=== PATIENT | female | born 1975 | race Caucasian/White ===

== ENCOUNTER 2020-07-24 10:36 | Emergency (ER) | payer BC, SELFPAY ==
[2020-07-24 10:41] VITALS: BP 120/72; PULSE 78; RESP 16; TEMP 36.6; O2SAT 99
--- NOTE | 2020-07-24 10:42 | ED.URI ---
HPI - URI/Sore Throat General Chief Complaint: Upper Respiratory Infection Stated Complaint: sore throat/swollen glands/white/body aches Time Seen by Provider: 07/24/20 11:03 Source: patient and RN notes reviewed Mode of arrival: ambulatory Limitations: no limitations History of Present Illness HPI Narrative: 44-year-old female presents with return for 3-day history of sore throat, cough, sinus congestion, pressure, drainage, fatigue. Reports she is been taking Mucinex DM. She has not taken her temperature, reports feeling warm. Denies any known sick contacts. MD elicited complaint: sore throat Related Data Home Medications Medication Instructions Recorded Confirmed epinephrine 0.3 mg/0.3 mL 0.3 mg IM ONCE 09/21/19 injection, auto-injector lorazepam 0.5 mg tablet 0.5 mg PO BID PRN 09/21/19 omeprazole magnesium 20 mg 20 mg PO DAILY 09/21/19 tablet,delayed release Allergies Allergy/AdvReac Type Severity Reaction Status Date / Time erythromycin base Allergy Mild Hives Verified 07/18/20 15:13 gluten Allergy Mild Nausea and Verified 07/18/20 15:13 Vomiting hydrocodone Allergy Mild Unknown Verified 07/18/20 15:13 hydroxyzine Allergy Mild unkown Verified 07/18/20 15:13 latex Allergy Mild Rash Verified 07/18/20 15:13 acetaminophen Allergy Unknown Unknown Verified 07/18/20 15:13 HYDROCODONE BIT Allergy Unknown Unknown Uncoded 07/18/20 15:13 MACROLIDES Allergy Unknown unknown Uncoded 07/18/20 15:13 TRIBUTATEAN Allergy Unknown Unknown Uncoded 07/18/20 15:13 Review of Systems Review of Systems: Narrative: CONSTITUTIONAL: Denies malaise, chills, sweats, or fever. EYES: Denies visual changes, redness, or discharge. ENT: Reports rhinorrhea, congestion, sore throat. Denies sinus pain, otalgia CARDIOVASCULAR: Denies chest pain, palpitations, or edema. RESPIRATORY: Reports cough. Denies dyspnea. GASTROINTESTINAL: Denies abdominal pain, nausea, vomiting, diarrhea SKIN: Denies rash or itching. MUSCULOSKELETAL: Denies myalgia. NEUROLOGIC: Denies headache. All systems reviewed & are unremarkable except as noted in HPI and below PMFSH Family History Family History (System 12/22/19 @ 10:45 by Marley Jeffery) Father Family history of hypercholesterolemia Family history of Parkinson's disease Mother Family history of malignant neoplasm of breast in first degree relative Social History Social History (Updated 07/18/20 @ 15:15 by Karen Jarrell [facility]) Smoking status: Never smoker Second hand tobacco smoke exposure: No Alcohol intake: current Comments At time of signature, agree with nursing past medical, surgical, social and family history. There is no relevant family history pertinent to the presenting complaint Exam Narrative: Exam Narrative: GENERAL: Well-appearing, well-nourished, and in no acute distress. HEAD: Normocephalic EYES: PERRLA, conjunctivae clear ENT: Nares clear, turbinates edematous and erythematous, clear discharge. Mucous membranes moist. TM pearly thomason with dull light reflex bilaterally; no tragal tenderness. Oropharynx mild erythematous without lesions. Tonsils not enlarged and without exudate, no drooling, no hoarseness, no trismus, uvula midline. NECK: Supple. No lymphadenopathy CHEST: Clear to auscultation, breath sounds equal. No wheezing, rhonchi, rales, or stridor. No respiratory distress, speaks in full sentences. HEART: Regular rate and rhythm. No murmur heard. SKIN: Warm, dry, no rash. NEURO: Alert and oriented x3. PSYCH: Normal mood and affect Course Course Emergency Course: Patient is aware of diagnosis, understands and agrees to treatment plan. Anticipatory guidance given. Patient agrees to follow-up as directed and is aware of reasons to seek care at the emergency department. Portions of this record may have been created with voice recognition software Vital Signs Vital signs: Vital Signs Temperature 97.8 F 07/24/20 10:41 Pulse Rate 78 07/24/20 10:41 Respira
== END 2020-07-24 11:09 | disposition home or self-care (01) ==
PROVIDERS: Emergency Provider Nurse Practitioner; PCP Internal Medicine
DX: J06.9 Acute upper respiratory infection, unspecified (principal); Z20.828 Contact with and (suspected) exposure to other viral communicable diseases
CPT/HCPCS: 87081; 87880; 99213; G0463

== ENCOUNTER 2020-07-24 11:05 | Outpatient (NON) | payer BC, SELFPAY ==
[2020-07-24 22:02] LABS: SARS-CoV-2 RNA PCR Negative
== END 2020-07-24 11:06 ==
PROVIDERS: PCP Internal Medicine; Visit Provider Nurse Practitioner
DX: Z20.828 Contact with and (suspected) exposure to other viral communicable diseases (principal); J06.9 Acute upper respiratory infection, unspecified
CPT/HCPCS: 87635; C9803; U0003

== ENCOUNTER 2020-12-27 08:21 | Emergency (ER) | payer BC, SELFPAY ==
--- NOTE | 2020-12-27 08:32 | ED.URI ---
HPI - URI/Sore Throat General Chief Complaint: Upper Respiratory Infection Stated Complaint: SINUS CONGESTION/HEADACHE Source: patient Mode of arrival: ambulatory Limitations: no limitations History of Present Illness HPI Narrative: Mary Henderson is a 45 yo female with a PMH of depression, high cholesterol, GERD, who comes to express care with complaints of upper respiratory problems including hoarse ness, sinus congetion, aches, just not feeling well. Taken Mucinex and nasal spray without effect states that her right ear is popping. Lymph nodes are tender. Is been feeling poorly for the last 3 to 4 days she has a long list of allergies to medications many without clear adverse effects. Related Data Home Medications Medication Instructions Recorded Confirmed omeprazole magnesium 20 mg 20 mg PO DAILY 09/21/19 12/27/20 tablet,delayed release Allergies Allergy/AdvReac Type Severity Reaction Status Date / Time erythromycin base Allergy Mild Hives Verified 12/27/20 08:27 gluten Allergy Mild Nausea and Verified 12/27/20 08:27 Vomiting hydrocodone Allergy Mild Unknown Verified 12/27/20 08:27 hydroxyzine Allergy Mild unkown Verified 12/27/20 08:27 latex Allergy Mild Rash Verified 12/27/20 08:27 acetaminophen Allergy Unknown Unknown Verified 12/27/20 08:27 HYDROCODONE BIT Allergy Unknown Unknown Uncoded 12/27/20 08:27 MACROLIDES Allergy Unknown unknown Uncoded 12/27/20 08:27 TRIBUTATEAN Allergy Unknown Unknown Uncoded 12/27/20 08:27 Review of Systems Review of Systems: Narrative: CONSTITUTIONAL: Denies fever, chills, sweats. EYES: Denies visual changes, redness, discharge. ENT: Denies rhinorrhea, has congestion, has sore throat, right otalgia. CARDIOVASCULAR: Denies chest pain, palpitations, edema. RESPIRATORY: Denies dyspnea, wheezing, cough GASTROINTESTINAL: Denies abdominal pain, nausea, vomiting, diarrhea. GENITOURINARY: Denies dysuria, hematuria, abnormal discharge SKIN: Denies rash or itching. NEUROLOGIC: Denies numbness, or focal weakness. PSYCHIATRIC: Denies anxiety or depression. [facility] Past Medical History Medical History Depression GERD (gastroesophageal reflux disease) High cholesterol Family History Family History Father Family history of hypercholesterolemia Family history of Parkinson's disease Mother Family history of malignant neoplasm of breast in first degree relative Social History Social History Smoking status: Never smoker Second hand tobacco smoke exposure: No Alcohol intake: current Comments At time of signature, I agree with nursing past medical, surgical, social and family history. There is no relevant family history pertinent to the presenting complaint. Exam Narrative: Exam Narrative: GENERAL: This is a well-nourished, well-developed patient, in mild distress. HEAD: normocephalic, atraumatic. EYES: Sclera clear/white. Vision is grossly intact. EARS: External ears normal, auditory canals clear on the left, right ear canal some erythema, fluid behind TM. TMs without perforation. Hearing grossly intact. NOSE: External nose normal without nasal discharge, nares without redness, no rhinorrhea. THROAT: Mucous membranes moist, posterior pharynx mildly erythematous, no exudate NECK: Neck supple, tender submandibular lymph nodes bilaterally CARDIOVASCULAR: Regular rate and rhythm without murmurs, gallops, or rubs. RESPIRATORY: Clear to auscultation. Breath sounds equal bilaterally. No wheezes, rales, or rhonchi. GASTROINTESTINAL: Abdomen soft, SKIN: warm, intact with no suspicious lesions or rash, good texture and turgor. NEURO: awake, alert, and oriented to person, place and time. There were no obvious focal neurologic abnormalities. Steady gait EXTREMITIES: Normal range of motion. BACK: Nontender without defo
[2020-12-27 08:36] VITALS: BP 114/72; PULSE 82; RESP 16; TEMP 36.3; O2SAT 98
== END 2020-12-27 09:18 | disposition home or self-care (01) ==
PROVIDERS: Emergency Provider Nurse Practitioner; PCP Physician Assistant
DX: H66.001 Acute suppurative otitis media without spontaneous rupture of ear drum, right ear (principal); J02.9 Acute pharyngitis, unspecified; Z20.822 Contact with and (suspected) exposure to COVID-19; F32.9 Major depressive disorder, single episode, unspecified; K21.9 Gastro-esophageal reflux disease without esophagitis; E78.00 Pure hypercholesterolemia, unspecified
CPT/HCPCS: 87081; 87426; 87880; 99213; C9803; G0463

== ENCOUNTER 2021-04-29 10:46 | Emergency (ER) | payer BC, SELFPAY ==
[2021-04-29] VITALS (8 sets, daily range): BP systolic 107–137; BP diastolic 77–88; PULSE 59–77; RESP 16–22; TEMP 37.2; O2SAT 97–100
--- NOTE | ~2021-04-29 | CT_ITS ---
EXAMINATION: CT brain wo con DATE: 04/29/2021 13:09 INDICATION: Dizziness. Generalized headache. Upper extremity numbness for 3 weeks. TECHNIQUE: Computed tomography (CT) of the head was performed without intravenous contrast. The mA wa s adjusted according to patient size. Iterative reconstruction technique was employed. Exam dose: 60 5.33 mGy-cm total exam DLP. COMPARISON: None FINDINGS: No intracranial mass lesion or hemorrhage or cerebrovascular accident. Normal thomason-white ma tter differentiation. Normal ventricular size. No midline shift or mass effect effect. No fracture or bone destruction of the cranial vault. There is some patchy opacification of the right ethmoid cells and minimal mucoperiosteal thickening o f the maxillary sinuses, primarily on the right. The mastoid air cells are normally developed and aer ated. IMPRESSION: No significant intracranial abnormality Reviewed, dictated and finalized at [facility]. Reviewed, dictated and finalized at location [facility].
--- NOTE | ~2021-04-29 | XR_ITS ---
EXAMINATION: XR chest 2V DATE: 04/29/2021 11:13 INDICATION: Chest pain TECHNIQUE: PA and lateral views of the chest are obtained. COMPARISON: 11/16/2017 FINDINGS: The lungs are free of acute opacities. There is no pleural effusion or pneumothorax. The ca rdiomediastinal silhouette is normal. There is mild thoracic spondylosis. There are bilateral breast implants. Cholecystectomy clips are noted in the right upper quadrant. IMPRESSION: 1. No acute cardiopulmonary abnormality. Reviewed, dictated and finalized at location [facility].
--- NOTE | 2021-04-29 10:48 | ECG_ITS ---
Measurements Intervals Lilly Rate: 62 P: 64 TN: 132 QRS: 61 QRSD: 89 T: 52 QT: 403 QTc: 410 Interpretive Statements SINUS RHYTHM NORMAL ECG Electronically Signed On 04-29-2021 11:42:36 CDT by Edi Perales D.O.
[2021-04-29 11:07] LABS: Basophils Absolute Auto 0.1 K/mm3 (0.0-0.1); Basophils Percent Auto 0.8 % (0.2-1.2); Eosinophils Absolute Auto 0.3 K/mm3 (0-0.3); Eosinophils Percent Auto 4.4 % (0-4.4); Hematocrit 43.2 % (37.0-47.0); Immature Granulocyte Absolute 0.02 K/mm3 (0.00-0.031); Immature Granulocyte Percent A 0.3 % (0-0.5); Lymphocytes Absolute Auto 2.59 K/mm3 (0.9-3.2); Lymphocytes Percent Auto 34.3 % (18.3-44.2); Mean Corpuscular HGB Conc 32.4 g/dl (32-36); Mean Corpuscular Hemoglobin 30.3 pg (26-34); Mean Corpuscular Volume 93.5 fl (80-100); Mean Platelet Volume 9.4 fl (7.4-10.4); Monocytes Absolute Auto 0.5 K/mm3 (0.1-0.6); Neutrophils Absolute Auto 4.1 K/mm3 (1.3-6.7); Neutrophils Percent Auto 54.2 % (45.5-73.1); Platelet Count Result 360 k/mm3 (150-375); Red Blood Count 4.62 M/mm3 (4.2-5.4); Red Cell Distribution Width 12.3 % (11.5-14.5); White Blood Count 7.6 K/mm3 (4.5-10.0)
[2021-04-29 11:15] LABS: INR 0.9; Partial Thromboplastin Time 28.4 SECONDS (22.3-36.8); Prothrombin Time 12.1 Seconds (11.1-14.7)
[2021-04-29 11:19] LABS: Anion Gap 11 mmol/L (8-16); Blood Urea Nitrogen 14 mg/dL (7-17); Carbon Dioxide 27 mmol/L (22-30); Chloride 106 mmol/L (98-107); Estimated CRCL calculation 84 ml/min; Estimated Glomerular Filt Rate > 60; Glucose 114 mg/dL (65-110); Potassium 3.7 mmol/L (3.4-5.0); Sodium 144 mmol/L (137-145)
[2021-04-29] MEDS: ASPIRIN 81 MG CHEWABLE TABLET 324 MG PO (11:22)
[2021-04-29 11:28] LABS: Troponin I < 0.012 ng/mL (0.000-0.034)
--- NOTE | 2021-04-29 12:46 | ED.GENADULT ---
HPI - General Adult General Chief complaint: Chest Pain Stated complaint: chest pain Time Seen by Provider: 04/29/21 12:09 Source: patient History of Present Illness HPI narrative: Patient is a 45 y/o female complaining of intermittent chest pain for last 2-3 weeks. She describes her pain as a pressure with no radiation. She rates her pain as 8/10 at worst, but 1-2/10 currently. Activity seems aggravate her pain. She also has some nausea, but no vomiting. She has some dizziness. Related Data Home Medications Medication Instructions Recorded Confirmed omeprazole magnesium 20 mg 20 mg PO DAILY 09/21/19 12/27/20 tablet,delayed release Allergies Allergy/AdvReac Type Severity Reaction Status Date / Time erythromycin base Allergy Mild Hives Verified 04/29/21 11:21 gluten Allergy Mild Nausea and Verified 04/29/21 11:21 Vomiting hydrocodone Allergy Mild Unknown Verified 04/29/21 11:21 hydroxyzine Allergy Mild unkown Verified 04/29/21 11:21 latex Allergy Mild Rash Verified 04/29/21 11:21 acetaminophen Allergy Unknown Unknown Verified 04/29/21 11:21 HYDROCODONE BIT Allergy Unknown Unknown Uncoded 04/29/21 11:21 MACROLIDES Allergy Unknown unknown Uncoded 04/29/21 11:21 TRIBUTATEAN Allergy Unknown Unknown Uncoded 04/29/21 11:21 Review of Systems Review of Systems: All systems reviewed & are unremarkable except as noted in HPI and below Constitutional: Constitutional: Denies chills, Denies fever(s), Denies headache(s) and Denies weakness Eyes: Eyes: Denies blurry vision ENT: Denies headache(s) and Denies neck pain Cardiovascular: Cardiovascular: Reports chest pain and Denies dyspnea Respiratory: Respiratory: Denies cough and Denies dyspnea Gastrointestinal: Gastrointestinal: Denies abdominal pain, Denies diarrhea, Reports nausea and Denies vomiting Genitourinary: Genitourinary: Denies hematuria and Denies dysuria Musculoskeletal: Musculoskeletal: Denies back pain and Denies neck pain Neurologic: Reports dizziness, Denies headache(s) and Denies weakness [facility] Past Medical History Medical History Depression GERD (gastroesophageal reflux disease) High cholesterol Family History Family History Father Family history of hypercholesterolemia Family history of Parkinson's disease Mother Family history of malignant neoplasm of breast in first degree relative Social History Social History Smoking status: Never smoker Second hand tobacco smoke exposure: No Alcohol intake: current Exam Const: General: no acute distress and well developed Orientation/consciousness: oriented to person, oriented to place, oriented to time and patient oriented x3 HENMT: Head: normocephalic Ears: external ears normal General nose exam: Normal external nose present Eyes: General: appearance normal, both eyes and all related structures Conjunctivae: conjunctivae normal Neck: Neck: normal visual inspection and full ROM Chest: Chest palpation & inspection: normal inspection of the chest and no tenderness Resp: Effort & Inspection: normal respiratory effort Auscultation: clear to auscultation bilaterally Cardio: Rate: regular rate Rhythm: regular rhythm GI: GI Palp: No abdominal tenderness and Yes Soft to palpation Skin: General skin exam: normal color and turgor normal Neuro: General: oriented to person, oriented to place, oriented to time and patient oriented x3 Cranial nerves: Yes CN's II-XII intact bilaterally Cognition (Neuro): normal cognition Speech: normal speech Motor exam (neuro): 5/5 motor strength present throughout Sensory Exam: normal sensation Coordination: [id number] test normal and [id number] test normal Extrem: General: normal to inspection, full ROM and no pedal edema Psych: Appearance: grossly normal Mental Status: mental status g
[2021-04-29 13:58] LABS: Troponin I < 0.012 ng/mL (0.000-0.034)
[2021-04-29 15:58] LABS: D Dimer 0.27 ug/mL (<0.48)
== END 2021-04-29 16:17 | disposition home or self-care (01) ==
PROVIDERS: Emergency Medicine; Emergency Provider Emergency Medicine; PCP Physician Assistant
DX: R42 Dizziness and giddiness (principal); R07.9 Chest pain, unspecified
CPT/HCPCS: 36415; 70450; 71046; 80048; 84484; 85025; 85380; 85610; 85730; 93005; 99284; A9270

== ENCOUNTER 2021-05-28 08:39 | Outpatient (CLI) | payer BC, SELFPAY ==
--- NOTE | 2021-05-28 08:45 | EST_ITS ---
Patient Info Name: Mary Henderson Age: 45 years : 1975 Gender: Female Ht: 63 in Wt: 165 lbs BSA: 1.85 m2 HR: 67 bpm BP: 113 / 72 mmHg Heart Rhythm: Sinus Rhythm Exam Date: 05/28/2021 9:07 AM Exam Location: [facility] Patient Status: Outpatient Admit Date: 05/28/2021 Staff Ordering Physician: Ciro Joe PA-C Livestock Producer: Rose Marie Villanueva CT Attending Provider: Ciro Joe PA-C Referring Physician: Tatyana LARA; Exercise Technologist: Agata Echols RDCS Exercise Physician: Edi Perales DO Exam Type: CA stress echo Study Info Indications R07.89 - Other chest pain Treadmill exercise stress echocardiogram is performed. Summary 1. 1. Negative Yariel exercise stress test for ischemic ST changes by ECG criteria. 2. 2. Good functional capacity, achieving 11 METs of workload. 3. 3. Appropriate HR response to exercise. 4. 4. Appropriate HR recovery at 1 minute post exercise. 5. 5. Negative stress echocardiogram for ischemia by wall motion analysis. 6. 6. Patient informed of the above results. Stress Echo Findings Left Ventricle Appropriate increase in LV endocardial thickening with systole. Appropriate augmentation of contractility with systole. No wall motion abnormality. Left Ventricle Normal LV systolic function, no wall motion abnormality. Protocol: Yariel Stress ECG Details Stage: REST Duration (min): 1 min : 18 sec Speed (mph): 0.0 Grade (%): 0 HR (bpm): 68 SBP (mmHg): 113 DBP (mmHg): 72 METS: --- Stage: REST Duration (min): 21 min : 22 sec Speed (mph): 0.0 Grade (%): 0 HR (bpm): 77 SBP (mmHg): 113 DBP (mmHg): 72 METS: --- Stage: STAGE 1 Duration (min): 1 min : 0 sec Speed (mph): 1.7 Grade (%): 10 HR (bpm): 89 SBP (mmHg): 113 DBP (mmHg): 72 METS: --- Stage: STAGE 1 Duration (min): 2 min : 0 sec Speed (mph): 1.7 Grade (%): 10 HR (bpm): 100 SBP (mmHg): 113 DBP (mmHg): 72 METS: --- Stage: STAGE 1 Duration (min): 3 min : 0 sec Speed (mph): 1.7 Grade (%): 10 HR (bpm): 103 SBP (mmHg): 158 DBP (mmHg): 57 METS: --- Stage: STAGE 2 Duration (min): 1 min : 0 sec Speed (mph): 2.5 Grade (%): 12 HR (bpm): 107 SBP (mmHg): 158 DBP (mmHg): 57 METS: --- Stage: STAGE 2 Duration (min): 2 min : 0 sec Speed (mph): 2.5 Grade (%): 12 HR (bpm): 114 SBP (mmHg): 151 DBP (mmHg): 62 METS: --- Stage: STAGE 2 Duration (min): 3 min : 0 sec Speed (mph): 2.5 Grade (%): 12 HR (bpm): 113 SBP (mmHg): 151 DBP (mmHg): 62 METS: --- Stage: STAGE 3 Duration (min): 1 min : 0 sec Speed (mph): 3.4 Grade (%): 14 HR (bpm): 131 SBP (mmHg): 131 DBP (mmHg): 65 METS: --- Stage: STAGE 3 Duration (min): 2 min : 0 sec Speed (mph): 3.4 Grade (%): 14 HR (bpm): 134 SBP (mmHg): 131 DBP (mmHg): 65 METS: --- St
== END 2021-05-28 08:40 | disposition home or self-care (01) ==
LOC: ANHCARD 08:41
PROVIDERS: PCP Physician Assistant; Visit Provider Physician Assistant
DX: R07.9 Chest pain, unspecified (principal)
CPT/HCPCS: 93351

== ENCOUNTER → 2021-10-25 00:56 | Outpatient (CLI) | payer BC, SELFPAY ==
[2021-10-26 23:19] LABS: SARS-CoV-2 RNA PCR Negative
== END ==
PROVIDERS: PCP Internal Medicine; Visit Provider Physician Assistant
DX: R09.89 Other specified symptoms and signs involving the circulatory and respiratory systems (principal); Z20.822 Contact with and (suspected) exposure to COVID-19
CPT/HCPCS: C9803; U0003; U0005

== ENCOUNTER 2022-04-30 13:36 | Emergency (ER) | payer BC, SELFPAY ==
--- NOTE | 2022-04-30 13:40 | ED.URI ---
HPI - URI/Sore Throat General Chief Complaint: Upper Respiratory Infection Stated Complaint: WHEEZING/HEADACHE/COUGH/SNEEZING/SORE THROAT Time Seen by Provider: 04/30/22 13:40 Source: patient Mode of arrival: ambulatory Limitations: no limitations History of Present Illness HPI Narrative: Ms. Verde is a 46-year-old female patient presenting to the clinic today with complaints of wheezing, headache, cough, sneezing, and sore throat x5 days. She reports she has taken 3 COVID test and they have all been negative. Last test was completed yesterday. She reports that she is also had a low-grade temp. No history of asthma or COPD. States the cough is nonproductive at this time. MD elicited complaint: fever (low grade), cough, sore throat, rhinorrhea and nasal congestion Related Data Allergies Allergy/AdvReac Type Severity Reaction Status Date / Time erythromycin base Allergy Mild Hives Verified 10/29/21 10:27 gluten Allergy Mild Nausea and Verified 10/29/21 10:27 Vomiting hydrocodone Allergy Mild Unknown Verified 10/29/21 10:27 hydroxyzine Allergy Mild unkown Verified 10/29/21 10:27 latex Allergy Mild Rash Verified 10/29/21 10:27 acetaminophen Allergy Unknown Unknown Verified 10/29/21 10:27 HYDROCODONE BIT Allergy Unknown Unknown Uncoded 10/29/21 10:27 MACROLIDES Allergy Unknown unknown Uncoded 10/29/21 10:27 TRIBUTATEAN Allergy Unknown Unknown Uncoded 10/29/21 10:27 Review of Systems Review of Systems: Pertinent positives per HPI. Patient denies any rash, visual changes, dizziness, shortness of breath, chest pain, palpitations, nausea, vomiting, diarrhea, constipation, abdominal pain, or any urinary issues. [facility] Past Medical History Medical History Depression GERD (gastroesophageal reflux disease) High cholesterol Family History Family History Father Family history of hypercholesterolemia Family history of Parkinson's disease Mother Family history of malignant neoplasm of breast in first degree relative Social History Social History Smoking status: Never smoker Second hand tobacco smoke exposure: No Alcohol intake: current Comments At the time of my signature, I reviewed and agree with the nursing past medical, surgical, social, and family history. There is no relevant family history pertinent to the patient complaint. Exam Narrative: General: Well-developed, well nourished, in no apparent distress Head: Normocephalic, atraumatic Eyes: Pupils equally round and reactive to light bilaterally, EOM intact, sclera and conjunctive clear, no discharge, lids normal Ears: TMs intact and clear, ear canals clear, no drainage, grossly hearing normal. Nose: Nares patent, clear nasal discharge, mild inferior turbinate inflammation, no sinus tenderness. Mouth: Oral pharynx without lesions or masses, good dentition, MMM. Oropharynx red, postnasal drip Neck: Supple, trachea midline, no enlargement of anterior or posterior cervical nodes, no thyroid masses or goiter palpable. Cardio: Regular rate and rhythm, s1 and s2 normal, no murmur appreciated. Resp: Expiratory wheezing otherwise clear, no rhonchi, rales, or rubs Course Course Emergency Course: Portions of this record may have been created with voice recognition software. Level of Care: Express Care Visit Vital Signs Vital signs: Vital signs reviewed MDM - URI/Sore Throat MDM Narrative Medical decision making narrative: Patient is resting comfortably on exam. Differential Diagnosis Differential diagnosis: Likely sinusitis, viral infection, influenza and pharyngitis Discharge Plan Discharge Clinical Impression: Bronchitis Patient Disposition: Home, Self-Care Condition: Stable Instructions: Antibiotic Form, Acute Bronchitis (ED) Additional Instructions:
[2022-04-30 13:43] VITALS: BP 126/83; PULSE 78; RESP 16; TEMP 36.8; O2SAT 98
== END 2022-04-30 14:13 | disposition home or self-care (01) ==
PROVIDERS: Emergency Provider Nurse Practitioner Family; PCP Physician Assistant
DX: J40 Bronchitis, not specified as acute or chronic (principal); K21.9 Gastro-esophageal reflux disease without esophagitis; E78.00 Pure hypercholesterolemia, unspecified
CPT/HCPCS: 87081; 87880; 99213; G0463

== ENCOUNTER → 2022-05-02 01:47 | Outpatient (CLI) | payer BC, SELFPAY ==
[2022-05-02 18:05] LABS: SARS-CoV-2 RNA PCR Negative
== END ==
PROVIDERS: PCP Physician Assistant; Visit Provider Physician Assistant
DX: Z20.822 Contact with and (suspected) exposure to COVID-19 (principal)
CPT/HCPCS: C9803; U0003; U0005

== ENCOUNTER 2022-05-07 16:36 | Outpatient (CLI) | payer BC, SELFPAY ==
--- NOTE | ~2022-05-07 | XR_ITS ---
EXAMINATION: XR chest 2V 05/07/2022 16:51 INDICATION: Cough. Wheezing. Headache. PROCEDURE: Two-view chest COMPARISON: 04/29/2021 FINDINGS: The lungs are clear. The cardiomediastinal silhouette is within normal limits. There are no pleural effusions. There is no pneumothorax suspected. There are breast implants. IMPRESSION: 1: NO ACUTE CARDIOPULMONARY DISEASE. Reviewed, dictated and finalized at location [facility].
== END 2022-05-07 16:37 | disposition home or self-care (01) ==
PROVIDERS: PCP Physician Assistant; Visit Provider Physician Assistant
DX: R05.9 Cough, unspecified (principal)
CPT/HCPCS: 71046

== ENCOUNTER 2022-07-28 10:38 | Emergency (ER) | payer BC, SELFPAY ==
[2022-07-28 10:39] VITALS: BP 128/69; PULSE 91; RESP 18; TEMP 36.1; O2SAT 100
--- NOTE | 2022-07-28 10:44 | ED.ALLEREA ---
HPI - Allergic Reaction General Chief complaint: Allergic Reaction Stated complaint: allergic reaction Time Seen by Provider: 07/28/22 10:44 Source: patient Mode of arrival: ambulatory Limitations: no limitations History of Present Illness HPI narrative: Patient is a 46-year-old female presenting to the emergency department for evaluation of rash, itching. Patient reports she was exposed to a vine that she is allergic to when gardening in her yard 2 weeks ago. Patient with initial blistering, vesicular lesion and itching rash on the back of her right lower extremity, that did improve with an initial steroid treatment after being seen at an urgent care. Patient has been taking scheduled Benadryl and since the cessation of the steroid pack, her symptoms have worsened and now she reports hives over her upper and lower extremities as well. Patient reports weeping fluid from the area as well as tenderness. No significant erythema or purulence. Patient denies fever or chills. She denies shortness of breath, throat pain, difficulty with swallowing. Patient reports history of allergic reactions in the past to different fragrances. Patient does have intramuscular epinephrine that was prescribed by her primary care physician to use if her symptoms became severe. She has not utilized that at this point. Related Data Home Medications Medication Instructions Recorded Confirmed loratadine 10 mg tablet (Claritin) 10 mg PO DAILY 05/07/22 05/08/22 pseudoephedrine-guaifenesin ER 120 1 tablet PO Q12H PRN 05/07/22 05/08/22 mg-1,200 mg tab,extend release 12hr (Mucinex D Maximum Strength) Allergies Allergy/AdvReac Type Severity Reaction Status Date / Time erythromycin base Allergy Mild Hives Verified 05/07/22 15:55 gluten Allergy Mild Nausea and Verified 05/07/22 15:55 Vomiting hydrocodone Allergy Mild Unknown Verified 05/07/22 15:55 hydroxyzine Allergy Mild unkown Verified 05/07/22 15:55 latex Allergy Mild Rash Verified 05/07/22 15:55 acetaminophen Allergy Unknown Unknown Verified 05/07/22 15:55 HYDROCODONE BIT Allergy Unknown Unknown Uncoded 05/07/22 15:55 MACROLIDES Allergy Unknown unknown Uncoded 05/07/22 15:55 TRIBUTATEAN Allergy Unknown Unknown Uncoded 05/07/22 15:55 Review of Systems Review of Systems: CONSTITUTIONAL: Denies fever CARDIOVASCULAR: Denies chest pain RESPIRATORY: Denies cough or dyspnea. GASTROINTESTINAL: Denies abdominal pain SKIN: Reports itching and urticaria, large wound to the posterior aspect of the left lower extremity MUSCULOSKELETAL: Denies back pain NEUROLOGIC: Denies headache PMF Past Medical History Medical History Depression GERD (gastroesophageal reflux disease) High cholesterol Family History Family History Father Family history of hypercholesterolemia Family history of Parkinson's disease Mother Family history of malignant neoplasm of breast in first degree relative Social History Social History Smoking status: Never smoker Second hand tobacco smoke exposure: No Alcohol intake: current Exam Narrative: GENERAL: Awake, alert, conversant HEAD: Normocephalic, atraumatic. EYES: PERRLA and EOMI. ENT: Nares clear, no rhinorrhea or epistaxis. Mucous membranes moist. NECK: Supple. CHEST: No respiratory distress, breathing even and non labored HEART: Regular rate, sinus rhythm ABDOMEN:Non distended, non tender EXTREMITIES: Normal range of motion. No edema. SKIN: Patient with scattered urticaria to the upper and lower extremities. No involvement of mucous membranes. No sloughing of skin. There is a large vesicular lesion to the posterior aspect of the right thigh. Some weeping fluid present. No fluctuance. No significant erythema. NEURO:No focal deficits. Alert and oriented x3 Course Vital Signs Vital signs:
[2022-07-28] MEDS: FAMOTIDINE 20 MG/2 ML VIAL IV PUSH (12:08)
[2022-07-28] MEDS: diphenhydrAMINE HCl INJ 50 MG/ML VIAL 25 MG IV PUSH (12:08)
[2022-07-28] MEDS: methylPREDNISolone SOD SUCC 125 MG VIAL IV PUSH (12:08)
[2022-07-28 12:18] LABS: Basophils Percent Auto 0.3 % (0.2-1.2); Eosinophils Absolute Auto 0.7 K/mm3 (0-0.3); Eosinophils Percent Auto 7.6 % (0-4.4); Hematocrit 44.1 % (37.0-47.0); Hemoglobin 14.5 g/dL (12.0-15.0); Immature Granulocyte Absolute 0.04 K/mm3 (0.00-0.031); Immature Granulocyte Percent A 0.4 % (0-0.5); Lymphocytes Absolute Auto 2.86 K/mm3 (0.9-3.2); Lymphocytes Percent Auto 29.5 % (18.3-44.2); Mean Corpuscular HGB Conc 32.9 g/dl (32-36); Mean Corpuscular Hemoglobin 31.5 pg (26-34); Mean Corpuscular Volume 95.7 fl (80-100); Monocytes Absolute Auto 0.5 K/mm3 (0.1-0.6); Monocytes Percent Auto 5.3 % (2.6-8.5); Neutrophils Absolute Auto 5.5 K/mm3 (1.3-6.7); Neutrophils Percent Auto 56.9 % (45.5-73.1); Platelet Count Result 397 k/mm3 (150-375); Red Blood Count 4.61 M/mm3 (4.2-5.4); Red Cell Distribution Width 12.4 % (11.5-14.5); White Blood Count 9.7 K/mm3 (4.5-10.0)
[2022-07-28 12:26] LABS: Anion Gap 12 mmol/L (8-16); Blood Urea Nitrogen 16 mg/dL (7-17); Calcium 9.3 mg/dL (8.4-10.2); Carbon Dioxide 28 mmol/L (22-30); Chloride 103 mmol/L (98-107); Estimated CRCL calculation 70 ml/min; Estimated Glomerular Filt Rate > 60; Glucose 101 mg/dL (65-110); Potassium 4.1 mmol/L (3.4-5.0); Sodium 143 mmol/L (137-145)
[2022-07-28] MEDS: EPINEPHrine HCL INJ 1 MG/ML AMPUL 0.3 MG IM (13:55)
== END 2022-07-28 15:38 | disposition home or self-care (01) ==
PROVIDERS: Emergency Provider Emergency Medicine; PCP Physician Assistant
DX: L50.6 Contact urticaria (principal); T78.40XA Allergy, unspecified, initial encounter; K21.9 Gastro-esophageal reflux disease without esophagitis; E78.00 Pure hypercholesterolemia, unspecified; F32.A Depression, unspecified
CPT/HCPCS: 36415; 80048; 85025; 96372; 96374; 96375; 99284; J0171; J1200; J2930

== ENCOUNTER 2024-05-11 12:13 | Outpatient (CLI) | payer OTHER, SELFPAY ==
--- NOTE | ~2024-05-11 | MM_ITS ---
EXAMINATION: MM scrn erika implant BI w anna HISTORY: Screening mammogram TECHNIQUE: Craniocaudal and mediolateral oblique 3-D tomosynthesis images with implant displacement a nd synthetic 2-D images were generated. Craniocaudal and mediolateral oblique views of the breasts wi thout implant displacement were obtained using full field digital mammography. CAD analysis was submi tted and interpreted. COMPARISON: Comparison to multiple prior studies sequentially, with oldest reviewed study dated 05/27. BREAST PARENCHYMAL COMPOSITION: Not dense: There are scattered areas of fibroglandular density. FINDINGS: There is no evidence of suspicious mass, calcification, or architectural distortion to sugg est malignancy in either breast. There has been no suspicious interval change. IMPRESSION: 1. No mammographic evidence of malignancy. 2. Recommend routine screening mammography in one year. BI-RADS Category 1: Negative Reviewed, dictated and finalized at location B.
== END 2024-05-11 12:14 ==
LOC: MICIMG 12:15
PROVIDERS: PCP Nurse Practitioner; Visit Provider Nurse Practitioner
DX: Z12.31 Encounter for screening mammogram for malignant neoplasm of breast (principal)
CPT/HCPCS: 77063; 77067

== ENCOUNTER 2025-05-15 12:30 | Outpatient (CLI) | payer OTHER, SELFPAY ==
--- NOTE | ~2025-05-15 | MM_ITS ---
EXAMINATION: MM scrn erika implant BI w anna INDICATION: Asymptomatic, referred for screening mammogram COMPARISON: 05/11/2024 through 08/31/2010 TECHNIQUE: Digital Breast Tomosynthesis CC, MLO, and implant displaced CC and MLO views of Both breas ts were obtained with computer-aided detection to assist in interpretation of the study. FINDINGS: There are scattered areas of fibroglandular density. Bilateral breast Retroglandular Silicone implants in place appears intact. No focal dominant mass, architectural distortion, or suspicious microcalcifications are identified. There are no features to suggest malignancy. IMPRESSION: 1. No evidence of malignancy in the breasts. 2. Both breasts Retroglandular Silicone implants appears intact. Recommend continued screening mammography BI-RADS 1, NEGATIVE Reviewed, dictated and finalized at location B.
== END 2025-05-15 12:31 | disposition home or self-care (01) ==
LOC: MICIMG 12:31
PROVIDERS: PCP Internal Medicine; Visit Provider Nurse Practitioner
DX: Z12.31 Encounter for screening mammogram for malignant neoplasm of breast (principal); R92.8 Other abnormal and inconclusive findings on diagnostic imaging of breast; Z98.82 Breast implant status
CPT/HCPCS: 77063; 77067

== ENCOUNTER 2025-05-30 08:06 | Outpatient (CLI) | payer OTHER, SELFPAY ==
--- OUTSIDE RECORDS SUMMARY | 2024-03-26 16:30 | XMS_ITS ---
Author Organization [facility] [employer] [facility] [place] ([address]) Address [address] [place] [address] Care Team Providers Care Tile Picker Name Role Phone Ciro Joe Primary Care Provider UnavailJunie Hayward Unavailable [phone] Bruce Toscano Unavailable Unavailable [facility], Provider Unavailable Unavailab le Allergies Allergen (clinical drug ingredient) Drug/Non Drug Allergy documented on EMR Reaction Allergy Type Onset Date Status Fragrance Contact Dermatitis Allergy Active REASON FOR [facility]ISIT [facility] Encounter Medications Medication SIG (Take, Route, Frequency, Duration) Notes Start Date End Date Status Liothyronine Sodium 25 MCG 1 tab(s) orally once a day Active Levothyroxine Sodium 88 MCG 1 tab(s) orally once a day Active Famotidine 20 MG 1 tab(s) orally 2 times a day; Duration: 30 days 03/22/2024 Active Escitalopram Oxalate 20 MG 1 tab(s) orally once a day Active Fenofibrate 160 MG 1 tab(s) orally once a day Active Progesterone 200 MG as directed orally once a day Active Progesterone 100 MG 1 cap orally once a day (at bedtime) Active Calcium 600 + D 600 MG-5 MCG 1 TAB(S) ORALLY 3 TIMES A DAY *Please review and pick correct strength-formulat ion from [employer] options. If intended option is not shown, discontinue and re-order from Quick Search* Active Fish Oil 500 MG 1 cap(s) orally once a day Active DHEA 25 MG 1 tab(s) orally once a day Active Xyzal Allergy 24HR 5 MG 1 tab(s) orally once a day (in the evening) Active Flonase Allergy Relief 50 MCG/ACT 1 spray(s) in each nostril once a day Active Montelukast Sodium 10 MG 1 tab(s) orally once a day Active Turmeric 500 MG 1 cap(s) orally once a day Active methylPREDNISolone 4 MG as directed Active Vanicream - 1 fred applied topically 4 times a day 03/22/2024 Active Encounters Encounter Location Date Provider Diagnosis [address] [address] 03/26/2024 Provider [facility]-Migration Rash and other nonspecific skin eruption R21 and Pruritus, unspecified L29.9 Assessments Encounter Date Diagnosis (ICD Code) Assessment Notes Treatment Notes Treatment Clinical Notes Section Notes 03/26/2024 Rash and other nonspecific skin eruption (ICD-10 - R21) 03/26/2024 Pruritus, unspecified (ICD-10 - L29.9) Plan Of Treatment Medication Medication Name Sig Start Date Stop Date Notes Famotidine 20 MG 1 tab(s) orally 2 ti mes a day; Duration: 30 days 03/22/2024 Xyzal Allergy 24HR 5 MG 1 tab(s) orally once a day (in the evening) Montelukast Sodium 10 MG 1 tab(s) orally once a day Vanicream - 1 fred applied topica lly 4 times a day 03/22/2024 Progress Notes * BEBEChandlerOB:1974 (49 yo F)Acc No.[id number]:03/26/2024 Patient: Chase MARTINSn Provider: Bree Mullins :1975 A ge:48 Y S ex:Female Date:03/26/2024 Address:[address] [place] [address], [facility] Pcp:Ciro Joe Subjective: * Chief Complaints: * 1 . Multum To Medispan Conversion Encounter. * Medical History: * Medications: T aking methylPREDNISolone 4 MG Tablet Therapy Pack as directed , Taking Turmeric 500 MG Capsule 1 cap(s) orally once a day , Taking Flonase Allergy Relief 50 MCG/ACT Suspension 1 spray(s) in each nostril once a day , Taking DHEA 25 MG Tablet 1 tab(s) orally once a day , Taking Fish Oil 500 MG Capsule 1 cap(s) orally once a day , Taking Calcium 600 + D 600 MG-5 MCG TABLET 1 TAB(S) ORALLY 3 TIMES A DAY , Notes to Pharmacist: *Please review and pick correct strength-formulation from [email or web address] options. If intended option is not shown, discontinue and re-order from Quick Search*, Taking Progesterone 100 MG Capsule 1 cap orally once a day (at bedtime) , Taking Progesterone 200 MG Capsule as directed orally once a day , Taking Levothyroxine Sodium 88 MCG Tablet 1 tab(s) orally once a day , Taking Liothyronine Sodium 25 MCG Tablet 1 tab(s) orally once a day , Taking Fenofibrate 160 MG Tablet 1 tab(s) orally once a day , Taking Escitalopram Oxalate 20 MG Tablet 1 tab(s) orally once a day * Allergies: F ragrance: Contact Dermatitis. Objective: * Vitals: Assessment: * Assessment: 1. R fritz and other nonspecific skin eruption - R21 (Primary) 2 . P ruritus, unspecified - L29.9 Plan: * Treatment: 2. P ruritus, unspecified Continue Montelukast Sodium Tablet, 10 MG, 1 tab(s), orally, once a day; C ontinue Xyzal Allergy 24HR Tablet, 5 MG, 1 tab(s), orally, once a day (in the evening); S tart Famotidine Tablet, 20 MG, 1 tab(s), orally, 2 times a day, 30 days, 30, Refills 0. * Billing Information: * Visit Code: * Procedure Codes: * Electronic signature of Bryanna funk [facility]-Migration on 05/30/2025 at 08:23 AM CDT Sign off status: Pending * Provider: Bree davis Migration Date: 0 03/26/2024 Generated for Jaison batista/Lizzie/Sixto on: 0 05/30/2025 08:23 AM CDT
--- OUTSIDE RECORDS SUMMARY | 2025-05-30 08:24 | XMS_ITS | Patient Health Record ---
Author Organization [facility] [place] ([address]) Address [address] [place] [address] Care Team Providers Care [place] Program Coordinator Name Role Phone Ciro Joe Primary Care Provider UnavailJunie Hayward Unavailable [phone] Bruce Toscano Unavailable Allergies Allergen (clinical drug ingredient) Drug/Non Drug Allergy documented on EMR Reaction Allergy Type Onset Date Status Fragrance Contact Dermatitis Allergy Active Reason For Referral No Information Medications Medication SIG (Take, Route, Frequency, Duration) Notes Start Date End Date Status Escitalopram Oxalate 20 MG 1 tab(s) orally once a day Active Fenofibrate 160 MG 1 tab(s) orally once a day Active Montelukast Sodium 10 MG 1 tablet Orally Once at night; Duration: 90 days 05/03/2024 Active Flonase Allergy Relief 50 MCG/ACT 1 spray(s) in each nostril once a day Active Montelukast Sodium 10 MG 1 tab(s) orally once a day Active Vanicream - 1 fred applied topically 4 times a day 03/22/2024 Active Fish Oil 500 MG 1 cap(s) orally once a day Active DHEA 25 MG 1 tab(s) orally once a day Active Xyzal Allergy 24HR 5 MG 1 tab(s) orally once a day (in the evening) Active Progesterone 100 MG 1 cap orally once a day (at bedtime) Active Turmeric 500 MG 1 cap(s) orally once a day Not-Taking Calcium 600 + D 600 MG-5 MCG 1 TAB(S) ORALLY 3 TIMES A DAY *Please review and pick correct strength-formula tion from [employer] options. If intended option is not shown, discontinue and re-order from Quick Search* Active methylPREDNISolone 4 MG as directed Not-Taking Levocetirizine Dihydrochloride 5 MG 1 tablet in the evening Orally Once a day; Duration: 30 days 05/03/2024 Active Liothyronine Sodium 25 MCG 1 tab(s) orally once a day Active VANICREAM - 1 fred applied topically 4 times a day Active Levothyroxine Sodium 88 MCG 1 tab(s) orally once a day Active Progesterone 200 MG as directed orally once a day Active Famotidine 20 MG Take 1 tablet by mouth twice daily; Duration: 90 Active Immunizations Vaccine Route Administration Date Status Comme nts NOC Tdap Unknown 03/12/2014 Administered Portal [employer] Social History Tobacco Use: Social History Observation Description Date Details (start date - stop date) Never Smoker NA - NA Tobacco Control (Standard) Question Answer Notes Tobacco use: Nonsmoker Problems Problem Type SNOMED Code ICD Code Onset Dates Problem Status W/U Status Risk Notes Problem Eruption of skin (646699803) Rash and other nonspecific skin eruption (R21) Active confirmed Problem Chronic rhinitis (99390691) Chronic rhinitis (J31.0) Active confirmed Problem Hypertrophy of nasal turbinates (64851468) Hypertrophy of nasal turbinates (J34.3) Active confirmed Problem Pruritus (379802430) Pruritus, unspecified (L29.9) Active confirmed Encounters Encounter Location Date Provider Diagnosis [facility] [address] [place] [id number] 07/25/2024 Junie Vargas Plan Of Treatment No Information Insurance Providers Payer Name Payer Address Payer Phone Subscriber Number Group Number Insured Name Patient Relationship to Insured Coverage Start Date Coverage End Date [employer] [address] [address] [place] [address] [phone] [id number] Mary Woody Self - patient is the insured Medical (General) History Medical History History ICD Code Fatty liver Surgical History Surgery Date(Month/Year) 09/24/2000 12/26/2005 05/05/2007
--- OUTSIDE RECORDS SUMMARY | 2025-05-30 08:24 | XMS_ITS | Clinical Summary ---
Author Organization [facility] [address] [facility] [address] [place] [address] Care Team Providers Care Puller Over Name Role Phone Blade Reid MD Primary Care Provider [phone] Allergies Active Allergy Reactions Criticality Noted Date Comments Gluten Latex Medications multivitamin tablet tablet take 1 tablet by oral route every day with food 0 0 6 Active escitalopram (LEXAPRO) 20 mg tablet take 1 tablet by oral route qd 0 0 7 Active LORazepam (ATIVAN) 0.5 mg tablet take 1 Tablet by oral route every day as needed 0 0 6 Active cholestyramine -aspartame (CHOLESTYRAMIN E LIGHT) 4 gram powder take 1 scoop by oral route 3 times every day dissolved in 2 to 6 ounces of water or noncarbonated beverage before meals 0 0 6 Active topiramate (TOPAMAX) 25 mg tablet Take 25 mg by mouth 2 (two) times a day. Active fluticasone (FLONASE) 50 mcg/actuation nasal spray Administer 1 spray into each nostril daily. Active Active Problems Problem Noted Date Diagnosed Date Abnormal liver function tests 08/07/2016 Overview (01/22/2017): Elevated liver function tests Gastroesophageal reflux disease 08/07/2016 Overview (01/22/2017): Gastroesophageal reflux disease, esophagitis presence not specified Type 2 diabetes mellitus 06/06/2016 Overview (01/22/2017): Type 2 diabetes mellitus with complication, without long-term current use of insulin Mitral valve prolapse 06/06/2016 Overview (01/22/2017): Mitral valve prolapse Obesity with body mass index 30 or greater 06/06 Overview (01/22/2017): Obesity (BMI 30-39.9) Chest pain 06/06/2016 Overview (01/22/2017): Chest pain in adult Mixed anxiety depressive disorder 06/06/2016 Overview (01/22/2017): Anxiety and depression Medical History Medical History Date Comments Mitral valve prolapse Diabetes mellitus (HCC) Anxiety Family History Medical History Relation Name Comments Other Father 2 Alive and well; Other Mother 2 Alive and well; Relation Name Status Comments Father 1 Alive Father 2 Mother 1 Alive Mother 2 Social History Tobacco Use Types Packs/Day Years Used Date Smoking Tobacco: Never Alcohol Use Standard Drinks/Week Comments Yes 0 (1 standard drink = 0.6 oz pur e alcohol) Personal Safety Answer Date Recorded Getting School Help Needed Not on file 12/26 Comments Unknown Sex and Gender Information Value Date Recorded Sex Assigned at Not on file Legal Sex Female 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 Gender Identity Not on file Sexual Orientation Not on file Obstetrics History Last Filed Vital Signs Vital Sign Reading Time Taken Comments Blood Pressure 110/68 10/01/2017 9:51 AM DISH MACHINE OPERATOR Pulse 79 10/01/2017 9:51 AM DISH MACHINE OPERATOR Temperature - - Respiratory Rate - - Oxygen Saturation 97% 10/01/2017 9:51 AM DISH MACHINE OPERATOR Inhaled Oxygen Concentration - - Weight 77.1 kg (170 lb) 10/01/2017 9:51 AM DISH MACHINE OPERATOR Height 160 cm (5' 3) 10/01/2017 9:51 AM DISH MACHINE OPERATOR Body Mass Index 30.11 10/01/2017 9:51 AM DISH MACHINE OPERATOR Plan of Treatment Not on file Insurance [facility] Care Teams Puller Over Relationship Specialty Start Date End Date Blade Reid MD [address] [facility] [address] [place], [place] [id number] PCP - General Internal Medicine 12/30/18
[2025-05-30 08:51] LABS: Hemoglobin A1C 6.3 % (<5.7)
[2025-05-30 09:23] LABS: Alanine Aminotransferase 36 U/L (6-35); Albumin Level 4.4 g/dL (3.5-5.1); Alkaline Phosphatase 46 U/L (38-126); Anion Gap 9 mmol/L (4-12); Aspartate Amino Transferase 44 U/L (14-36); Bilirubin,Total 0.4 mg/dL (0.2-1.3); Blood Urea Nitrogen 8 mg/dL (7-17); Calcium 9.5 mg/dL (8.4-10.2); Carbon Dioxide 21 mmol/L (22-30); Chloride 108 mmol/L (98-107); Cholesterol 125 mg/dL (0-200); Estimated Glomerular Filt Rate > 60; Glucose 154 mg/dL (65-110); HDL Direct 26 mg/dL; Potassium 3.8 mmol/L (3.4-5.0); Sodium 138 mmol/L (137-145); Total Protein 7.7 g/dL (6.3-8.2); Triglycerides 333 mg/dL (<150)
== END 2025-05-30 08:07 | disposition home or self-care (01) ==
LOC: ANHLAB 08:07
PROVIDERS: PCP Internal Medicine; Visit Provider Internal Medicine
DX: R73.9 Hyperglycemia, unspecified (principal); E78.5 Hyperlipidemia, unspecified; E78.1 Pure hyperglyceridemia
CPT/HCPCS: 36415; 80053; 80061; 83036